=== PATIENT | female | born 2000 | race Caucasian/White ===

== ENCOUNTER 2024-04-14 22:43 | Emergency (ER) | payer SELFPAY ==
[~2024-04-14] VITALS: Ht 170.2 cm; Wt 69.0 kg
[2024-04-14 23:07] VITALS: BP 117/72; TEMP 98.4; O2SAT 100
[2024-04-14 23:13] VITALS: PULSE 90; RESP 18
[2024-04-15] MEDS ORDERED: ONDANSETRON 4MG ODT PO ONE (01:45)
[2024-04-15] MEDS ORDERED: ACETAMINOPHEN 325MG TABLET PO ONE (01:45)
== END 2024-04-15 09:02 | disposition left against medical advice (07) ==
LOC: ER 22:43
DX: R51.9 Headache, unspecified (principal); R11.2 Nausea with vomiting, unspecified; Z53.21 Procedure and treatment not carried out due to patient leaving prior to being seen by health care provider
CPT/HCPCS: Z7610 ×5